=== PATIENT | female | born 1985 | race Caucasian/White ===

== ENCOUNTER 2017-06-30 20:07 | Emergency (ER) | payer OTHER ==
[2017-06-30 20:46] LABS: #Basophils 0.1 thou/uL (0.0-0.2); #Eosinphils 0.1 thou/uL (0.0-0.7); #Lymphocytes 2.8 thou/uL (1.20-3.40); #Monocytes 0.4 thou/uL (0.11-0.59); #Neutrophils 7.3 thou/uL (1.40-6.50); %Basophils 0.5 % (0.0-1.0); %Eosinophils 0.9 % (0.0-10.0); %Monocytes 3.9 % (0.0-10.0); %Neutrophils 68.7 % (42.0-75.0); Hemoglobin 14.8 g/dL (12.0-16.0); Mean Corpuscular HGB CONC 34.2 g/dL (32.0-36.0); Mean Corpuscular Volume 90.5 fl (81.0-99.0); Mean Platelet Volume 6.5 fL (7.4-10.4); Platelet Count 328 thou/uL (130-400); RBC Distribution Width 11.5 % (11.5-14.5); Red Blood Cell (RBC) Count 4.78 mill/uL (4.20-5.40); White Blood Cell (WBC) Count 10.6 thou/uL (4.8-10.8)
[2017-06-30 21:07] LABS: ALT (SGPT) 17 U/L (8-55); AST (SGOT) 13 U/L (5-34); Alkaline Phosphatase 69 U/L (40-150); Anion Gap 13 mmol/L (10-20); BUN (Urea Nitrogen) 6 mg/dL (7.0-18.7); Bilirubin, Total 0.2 mg/dL (0.2-1.2); Calc. Creatinine Clearance 0 mL/min (70-130); Calcium 9.6 mg/dL (7.8-10.44); Carbon Dioxide 22 mmol/L (22-29); Chloride 109 mmol/L (98-107); Estimated GFR-MDRD Greater than 90; Glucose 84 mg/dL (70-105); Potassium 3.6 mmol/L (3.5-5.1); Sodium 140 mmol/L (136-145)
[2017-06-30] MEDS ORDERED: Ondansetron HCl/PF 4 MG/2 ML Vial ONE (21:09)
[2017-06-30 21:12] LABS: CKMB 0.5 ng/mL (0-6.6); Troponin I Less than 0.010 ng/mL (< 0.028)
--- NOTE | 2017-06-30 21:24 | RAD ---
FRONTAL VIEW CHEST: Comparison: 09-08-16 Clinical history: Chest pain. FINDINGS: Minimal linear density at the left lateral lung base may be related to a moderate degree of volume lo ss. No consolidation, effusion, or pneumothorax. Cardiac silhouette is normal in size. IMPRESSION: No focal consolidation. POS: [facility]
[2017-06-30] MEDS ORDERED: Ketorolac Tromethamine 30 MG/ML VIAL ONE (21:34)
[2017-06-30] MEDS ORDERED: Metoclopramide HCl 10 MG/2 ML VIAL ONE (21:34)
--- NOTE | 2017-07-06 17:46 | EKG ---
Test Reason : CHEST PAIN Blood Pressure : / mmHG Vent. Rate : 112 BPM Atrial Rate : 112 BPM P-R Int : 148 ms QRS Dur : 080 ms QT Int : 336 ms P-R-T Axes : 027 029 027 degrees QTc Int : 458 ms Sinus tachycardia Otherwise normal ECG Confirmed by INOCENCIA VELEZ, BALJIT ([id number]), manuscript editor FLORA SUTHERLAND ([id number]) on 07/06/2017 5:46:04 PM Referred By: Confirmed By:BALJIT PRO MD
== END 2017-06-30 21:46 | disposition home or self-care (01) ==
LOC: ERS 20:07
DX: R09.1 Pleurisy (principal); E28.2 Polycystic ovarian syndrome; J45.909 Unspecified asthma, uncomplicated; G43.909 Migraine, unspecified, not intractable, without status migrainosus; E66.9 Obesity, unspecified; F41.9 Anxiety disorder, unspecified; F32.9 Major depressive disorder, single episode, unspecified; F43.10 Post-traumatic stress disorder, unspecified; Z79.82 Long term (current) use of aspirin; Z79.899 Other long term (current) drug therapy
CPT/HCPCS: 71045; 80053; 82553; 84484; 85025; 85379; 93005; 96374; 96375; J1885; J2405; J2765

== ENCOUNTER 2018-01-29 18:43 | Emergency (ER) | payer OTHER ==
[2018-01-29] MEDS ORDERED: diphenhydrAMINE 50 MG/ML VIAL ONE (19:01)
[2018-01-29] MEDS ORDERED: Metoclopramide HCl 10 MG/2 ML VIAL ONE (19:01)
[2018-01-29 19:58] LABS: BHCG - Serum Negative (NEGATIVE); Pregs Control Background? CLEAR/WHITE (CLR/WHITE); Pregs Control Bar Appear? YES (CONTROL BAR)
[2018-01-29] MEDS ORDERED: Ketorolac Tromethamine 30 MG/ML VIAL ONE (20:16)
[2018-01-29] MEDS ORDERED: methylPREDNISolone Sod Succ/PF 125 MG/2 ML VIAL ONE (20:41)
[2018-01-29] MEDS ORDERED: Magnesium Sulfate 2 GM/100 ML BAG ONE (20:43)
[2018-01-29] MEDS ORDERED: Methocarbamol 1 GM in Sodium Chloride 0.9% 250 ML 250 ML IVPB SCH (21:00)
== END 2018-01-29 23:21 | disposition home or self-care (01) ==
LOC: ERS 18:43
DX: G43.909 Migraine, unspecified, not intractable, without status migrainosus (principal); J45.909 Unspecified asthma, uncomplicated; E66.9 Obesity, unspecified; F41.9 Anxiety disorder, unspecified; F32.9 Major depressive disorder, single episode, unspecified; F43.10 Post-traumatic stress disorder, unspecified; F17.210 Nicotine dependence, cigarettes, uncomplicated; Z79.899 Other long term (current) drug therapy
CPT/HCPCS: 36415; 84703; 96361; 96365; 96367; 96375; J1200; J1885; J2765; J2800; J2930; J3475; J7050

== ENCOUNTER 2018-04-26 17:48 | Emergency (ER) | payer OTHER ==
[2018-04-26] MEDS ORDERED: Ketorolac Tromethamine 30 MG/ML VIAL ONE (18:40)
[2018-04-26 18:41] LABS: #Lymphocytes 2.9 thou/uL (1.20-3.40); #Monocytes 0.4 thou/uL (0.11-0.59); #Neutrophils 6.1 thou/uL (1.40-6.50); %Basophils 0.5 % (0.0-1.0); %Eosinophils 0.5 % (0.0-10.0); Hemoglobin 14.1 g/dL (12.0-16.0); Mean Corpuscular HGB CONC 34.7 g/dL (32.0-36.0); Mean Corpuscular Hemoglobin 30.9 pg (27.0-31.0); Mean Corpuscular Volume 89.2 fL (78.0-98.0); Mean Platelet Volume 6.2 fL (7.4-10.4); Platelet Count 387 thou/uL (130-400); RBC Distribution Width 10.9 % (11.5-14.5); Red Blood Cell (RBC) Count 4.56 mill/uL (4.20-5.40); White Blood Cell (WBC) Count 9.5 thou/uL (4.8-10.8)
[2018-04-26 18:55] LABS: Bilirubin Negative (Negative); Blood, Urine Small (Negative); Clarity CLEAR (Clear); Glucose, Urine (Dipstick) Negative (Negative); Leukocyte Negative (Negative); Nitrite Negative (Negative); Protein, Urine (Dipstick) Negative (Neg-Trace); Specific Gravity, Urine 1.013 (1.002-1.036); Urobilinogen 0.2 mg/dL (0.2-1.0); pH, Urine 6.5 (5.0-9.0)
[2018-04-26 18:55] LABS: BHCG - Serum Negative (NEGATIVE); Pregs Control Background? CLEAR/WHITE (CLR/WHITE); Pregs Control Bar Appear? YES (CONTROL BAR)
[2018-04-26 18:58] LABS: Bacteria/HPF None Seen HPF (None Seen); Hyaline Casts/LPF 0-3 HYALINE CAST LPF (0-3 Hyaline); Squamous Epithelial 0-3 HPF (0-3); WBC/HPF 0-3 HPF (0-3)
[2018-04-26 19:01] LABS: ALT (SGPT) 13 U/L (8-55); AST (SGOT) 13 U/L (5-34); Albumin 4.6 g/dL (3.5-5.0); Alkaline Phosphatase 59 U/L (40-150); Anion Gap 14 mmol/L (10-20); BUN (Urea Nitrogen) 18 mg/dL (7.0-18.7); Bilirubin, Total 0.2 mg/dL (0.2-1.2); Calc. Creatinine Clearance 0 mL/min (70-130); Calcium 9.6 mg/dL (7.8-10.44); Carbon Dioxide 22 mmol/L (22-29); Chloride 107 mmol/L (98-107); Estimated GFR-MDRD Greater than 90; Globulin 2.9 g/dL (2.4-3.5); Glucose 107 mg/dL (70-105); Lipase 51 U/L (8-78); Potassium 3.3 mmol/L (3.5-5.1); Protein, Total 7.5 g/dL (6.0-8.3); Sodium 140 mmol/L (136-145)
--- NOTE | 2018-04-26 19:22 | CT ---
CT ABDOMEN AND PELVIS WITH IV CONTRAST: 04/26/18 Multiple axial tomograms obtained through abdomen and pelvis with IV enhancement. INDICATIONS: Right lower quadrant abdominal pain. COMPARISON: Comparison made to CT abdomen and pelvis 03/31/16. Lung bases are clear. Liver, spleen, pancreas, unremarkable. Post cholecystectomy change is noted. Adrenal glands normal. Kidneys unremarkable. Urinary bladder unremarkable. Small bowel loops appear normal caliber. Appendix appears normal. Colon unremarkable. Uterus and adnexa appear unremarkable. No free fluid. No adenopathy. IMPRESSION: No acute abnormality identified. POS: [facility]
[2018-04-26] MEDS ORDERED: Metoclopramide HCl 10 MG TAB ONE (20:05)
[2018-04-26] MEDS ORDERED: Morphine 4 MG/ML VIAL ONE (20:05)
== END 2018-04-26 20:12 | disposition home or self-care (01) ==
LOC: ERS 17:48
DX: R10.31 Right lower quadrant pain (principal); F41.9 Anxiety disorder, unspecified; F43.10 Post-traumatic stress disorder, unspecified; E66.9 Obesity, unspecified; G43.909 Migraine, unspecified, not intractable, without status migrainosus; F17.210 Nicotine dependence, cigarettes, uncomplicated; Z79.891 Long term (current) use of opiate analgesic; Z79.899 Other long term (current) drug therapy
CPT/HCPCS: 36415; 74177; 80053; 81003; 81015; 83690; 84703; 85025; 96361; 96374; 96375; J1885; J2270

== ENCOUNTER 2018-06-11 18:05 | Emergency (ER) | payer OTHER ==
[2018-06-11 18:52] LABS: #Basophils 0.1 thou/uL (0.0-0.2); #Eosinphils 0.1 thou/uL (0.0-0.7); #Lymphocytes 2.2 thou/uL (1.20-3.40); #Monocytes 0.3 thou/uL (0.11-0.59); #Neutrophils 5.6 thou/uL (1.40-6.50); %Basophils 0.8 % (0.0-1.0); %Eosinophils 0.7 % (0.0-10.0); %Lymphocytes 27.1 % (21.0-51.0); %Monocytes 3.7 % (0.0-10.0); %Neutrophils 67.7 % (42.0-75.0); Mean Corpuscular HGB CONC 33.7 g/dL (32.0-36.0); Mean Corpuscular Hemoglobin 30.1 pg (27.0-31.0); Mean Corpuscular Volume 89.3 fL (78.0-98.0); Platelet Count 404 thou/uL (130-400); RBC Distribution Width 11.1 % (11.5-14.5); Red Blood Cell (RBC) Count 4.99 mill/uL (4.20-5.40); White Blood Cell (WBC) Count 8.2 thou/uL (4.8-10.8)
[2018-06-11 19:37] LABS: ALT (SGPT) 16 U/L (8-55); AST (SGOT) 17 U/L (5-34); Alkaline Phosphatase 64 U/L (40-150); Anion Gap 16 mmol/L (10-20); BUN (Urea Nitrogen) 15 mg/dL (7.0-18.7); Bilirubin, Total Less than 0.2 mg/dL (0.2-1.2); Calc. Creatinine Clearance 0 mL/min (70-130); Calcium 9.5 mg/dL (7.8-10.44); Carbon Dioxide 15 mmol/L (22-29); Chloride 110 mmol/L (98-107); Estimated GFR-MDRD 86; Globulin 2.7 g/dL (2.4-3.5); Glucose 88 mg/dL (70-105); Lipase 44 U/L (8-78); Potassium 3.8 mmol/L (3.5-5.1); Protein, Total 7.7 g/dL (6.0-8.3); Sodium 137 mmol/L (136-145)
--- NOTE | 2018-06-11 20:02 | RAD ---
FRONTAL VIEW CHEST: COMPARISON: 06/30/17 INDICATION: Chest pain. FINDINGS: There is no evidence of consolidation, effusion or pneumothorax. No free air beneath the hemidiaphrag m. Osseous structures are intact. IMPRESSION: No focal consolidation. POS: [facility]
== END 2018-06-11 20:08 | disposition home or self-care (01) ==
LOC: ERS 18:05
DX: R07.89 Other chest pain (principal); J45.909 Unspecified asthma, uncomplicated; G43.909 Migraine, unspecified, not intractable, without status migrainosus; E66.9 Obesity, unspecified; F43.10 Post-traumatic stress disorder, unspecified; F41.9 Anxiety disorder, unspecified; F32.9 Major depressive disorder, single episode, unspecified; F17.210 Nicotine dependence, cigarettes, uncomplicated; Z79.899 Other long term (current) drug therapy
CPT/HCPCS: 71045; 80053; 83690; 84484; 85025; 85379; 93005

== ENCOUNTER 2018-11-10 07:28 | Outpatient (CLI) | payer OTHER ==
--- NOTE | 2018-11-10 13:09 | NM ---
Exam: Nuclear medicine gastric emptying scan COMPARISON: 04/05/2015 TECHNIQUE: Patient was administered 2.1 mCi of technetium 99m sulfur colloid in the standard. FINDINGS: 30 minutes-7% emptying 60 minutes-30% emptying 2 hours-58% emptying 3 hours-77% emptying 4 hours-85% emptying T1 half-time: 105 minutes. IMPRESSION: Delayed gastric emptying with a T1 half-time of 105 minutes. There is also 15% retention after 4 hours.
== END 2018-11-10 07:29 | disposition home or self-care (01) ==
LOC: NM 07:28
PROVIDERS: ATTEND Internal Medicine Gastroenterology
DX: R11.2 Nausea with vomiting, unspecified (principal); K30 Functional dyspepsia
CPT/HCPCS: 78264; A9541

== ENCOUNTER 2019-03-20 15:43 | Emergency (ER) | payer OTHER | END 2019-03-20 16:30 | disposition left against medical advice (07) | LOC: ERS 15:43 | DX: Z53.21 Procedure and treatment not carried out due to patient leaving prior to being seen by health care provider (principal) ==

== ENCOUNTER 2019-03-20 17:03 | Emergency (ER) | payer OTHER ==
[2019-03-20 17:47] LABS: Pregnancy Test - Urine (BHCG) Negative (Negative); Pregu Control Background? CLEAR/WHITE (CLR/WHITE); Pregu Control Bar Appear? YES (CONTROL BAR)
[2019-03-20 17:56] LABS: Bilirubin Negative (Negative); Blood, Urine Trace (Negative); Clarity Clear (Clear); Glucose, Urine (Dipstick) Negative (Negative); Leukocyte Negative (Negative); Nitrite Negative (Negative); Protein, Urine (Dipstick) Negative (Neg-Trace); Urobilinogen 0.2 mg/dL (Less than 2)
[2019-03-20 17:58] LABS: Bacteria/HPF 1+ HPF (None Seen); RBC/HPF 0-3 HPF (0-3); Sperm/HPF 1+ HPF (None Seen); WBC/HPF 0-3 HPF (0-3)
[2019-03-20 17:59] LABS: Mucous/LPF 1+ LPF (<2+)
--- NOTE | 2019-03-20 20:10 | ULT ---
Exam: Pelvic ultrasound HISTORY: Pelvic pain COMPARISON: 04/03/2016. TECHNIQUE: Multiple grayscale and color Doppler images were obtained in a transabdominal and transvag inal pelvic ultrasound. Spectral analysis of the Doppler waveforms of the ovaries were performed. FINDINGS: CERVIX: Normal in appearance where visualized. UTERUS: Retroverted but is normal in size without focal abnormalities seen. ENDOMETRIAL STRIPE: 9 mm which is within normal limits for a normal menstruating female patient. No f luid or fluid collection is seen in the endometrial canal. Small amount of free fluid is seen in the cul-de-sac which is likely physiologic in origin. RIGHT OVARY: Normal flow, without focal mass. LEFT OVARY: Normal flow, without focal mass. IMPRESSION: Normal-appearing uterus and bilateral ovaries. Small amount of free fluid in the cul-de-sac which is probably physiologic in origin.
[2019-03-20] MEDS ORDERED: Ketorolac Tromethamine 30 MG/ML VIAL ONE (20:16)
== END 2019-03-20 20:35 | disposition home or self-care (01) ==
LOC: SCSER 17:03
DX: R10.2 Pelvic and perineal pain (principal); G43.909 Migraine, unspecified, not intractable, without status migrainosus; F41.9 Anxiety disorder, unspecified; F32.9 Major depressive disorder, single episode, unspecified; F17.210 Nicotine dependence, cigarettes, uncomplicated; Z79.899 Other long term (current) drug therapy
CPT/HCPCS: 76856; 81003; 81015; 81025; 87086; 96372; J1885

== ENCOUNTER 2019-03-23 01:16 | Emergency (ER) | payer OTHER ==
[2019-03-23] MEDS ORDERED: Ibuprofen 600 MG TAB ONE (01:32)
--- NOTE | 2019-03-23 08:25 | RAD ---
RIGHT KNEE RADIOGRAPHS 4 VIEWS: DATE: 03/23/2019. PROVIDED CLINICAL HISTORY: Pain status post injury. FINDINGS: Comparison 08/05/2016. There is no evidence for a fracture or other acute osseous abnormality. If th ere is persistent clinical concern, conservative management and followup imaging are advised. IMPRESSION: As above. POS: [facility]
== END 2019-03-23 02:03 | disposition home or self-care (01) ==
LOC: SCSER 01:16
DX: S86.911A Strain of unspecified muscle(s) and tendon(s) at lower leg level, right leg, initial encounter (principal); J45.909 Unspecified asthma, uncomplicated; F17.210 Nicotine dependence, cigarettes, uncomplicated; F41.9 Anxiety disorder, unspecified; F32.9 Major depressive disorder, single episode, unspecified; F43.10 Post-traumatic stress disorder, unspecified; Z79.899 Other long term (current) drug therapy; X50.9XXA Other and unspecified overexertion or strenuous movements or postures, initial encounter

== ENCOUNTER 2021-04-24 09:35 | Outpatient (CLI) | payer OTHER | END 2021-04-24 09:36 | disposition home or self-care (01) | LOC: RAD 09:35 | PROVIDERS: ATTEND Internal Medicine Critical Care Medicine | DX: R06.00 Dyspnea, unspecified (principal) | CPT/HCPCS: 71046 ==

== ENCOUNTER 2021-11-16 10:39 | Outpatient (CLI) | payer MEDICARE, OTHER | END 2021-11-16 10:40 | disposition home or self-care (01) | LOC: BICRAD 10:39 | PROVIDERS: ATTEND Specialist | DX: M26.622 Arthralgia of left temporomandibular joint (principal); H92.09 Otalgia, unspecified ear | CPT/HCPCS: 70330 ==

== ENCOUNTER 2023-06-20 12:41 | Outpatient (CLI) | payer OTHER | END 2023-06-20 12:42 | disposition home or self-care (01) | LOC: ULT 12:41 → BICULT 12:42 | PROVIDERS: ATTEND Specialist | DX: R10.9 Unspecified abdominal pain (principal); R16.0 Hepatomegaly, not elsewhere classified; Z33.1 Pregnant state, incidental; Z90.49 Acquired absence of other specified parts of digestive tract | CPT/HCPCS: 76700 ==

== ENCOUNTER 2025-04-23 13:05 | Outpatient (CLI) | payer MEDICARE, OTHER ==
[2025-04-23 14:27] LABS: BHCG - Serum Negative (NEGATIVE); Pregs Control Background? CLEAR/WHITE (CLR/WHITE); Pregs Control Bar Appear? YES (CONTROL BAR)
[2025-04-23 14:38] LABS: Anion Gap 15 mmol/L (10-20); BUN (Urea Nitrogen) 12 mg/dL (7.0-18.7); Calc. Creatinine Clearance 0 mL/min (70-130); Calcium 9.5 mg/dL (7.8-10.44); Carbon Dioxide 19 mmol/L (22-29); Chloride 109 mmol/L (98-107); Glucose 110 mg/dL (70-105); Potassium 4.3 mmol/L (3.5-5.1); Sodium 139 mmol/L (136-145)
== END 2025-04-23 13:06 | disposition home or self-care (01) ==
LOC: LABBT 13:05
PROVIDERS: ATTEND Orthopaedic Surgery Hand Surgery
DX: Z01.818 Encounter for other preprocedural examination (principal); S63.8X1A Sprain of other part of right wrist and hand, initial encounter; S63.591A Other specified sprain of right wrist, initial encounter
CPT/HCPCS: 80048; 84703; 93005; 93010

== ENCOUNTER → 2025-04-27 | Day surgery (SDC) | payer MEDICARE, OTHER ==
[2025-04-23 13:24] VITALS: BMI 37.5
[~2025-04-27] MED LIST: Bacitracin Zinc Ointment 30 gm TUBE ONE; Bupivacaine 0.25% HCL 30 ML VIAL ONE; Lidocaine 1% PF 5 ML VIAL ONE; Metoclopramide HCl 10 MG (2 mL) VIAL ONE; PROPOFOL 20 ML ONE; PROPOFOL 200 MG/20 ML VIAL ONE; Ropivacaine 0.5% HCl/PF (150 MG/30 ML VIAL) ONE; Vancomycin 1 GM/200 ML (FROZEN) BAG ONE; fentaNYL PF 100 MCG/2 ML SYRINGE ONE
== END ==
LOC: SDC 10:53
PROVIDERS: ATTEND Orthopaedic Surgery Hand Surgery
PROC: 0RBN4ZZ Excision of Right Wrist Joint, Percutaneous Endoscopic Approach (ICD-10-PCS; principal; 2025-04-27)
DX: S63.591A Other specified sprain of right wrist, initial encounter (principal); S63.8X1A Sprain of other part of right wrist and hand, initial encounter; E11.9 Type 2 diabetes mellitus without complications; M77.8 Other enthesopathies, not elsewhere classified; G56.03 Carpal tunnel syndrome, bilateral upper limbs; F17.210 Nicotine dependence, cigarettes, uncomplicated; Z88.0 Allergy status to penicillin; Z88.1 Allergy status to other antibiotic agents; Z88.2 Allergy status to sulfonamides; Z88.5 Allergy status to narcotic agent; Z88.8 Allergy status to other drugs, medicaments and biological substances; Z91.048 Other nonmedicinal substance allergy status; Z91.018 Allergy to other foods; Z90.49 Acquired absence of other specified parts of digestive tract; Z98.890 Other specified postprocedural states; Z79.899 Other long term (current) drug therapy; Z91.040 Latex allergy status
CPT/HCPCS: 25107; 25320; 29846; 64415; 73100; A6223; C1713 ×2; C1894; J0665; J1100; J2704; J2765; J2795; J3373; J0166; J2250